=== PATIENT | female | born 1960 | race African-American/Black ===

== ENCOUNTER 2016-09-15 10:28 | Day surgery (SDC) | payer OTHER ==
[2016-09-10 09:52] VITALS: BMI 43.6
[2016-09-15] MEDS ORDERED: PROPOFOL 20 ML ONE ×2 (10:36)
[2016-09-15 11:41] VITALS: PULSE 74
[2016-09-15 12:04] VITALS: BP 118/60; TEMP 50
--- NOTE | 2016-09-20 17:44 | PATH ---
Surgical Pathology Report Patient Name: JUAN CUNHA [facility]. Rec. #: [id number] /Age/Gender: 1960 (Age: 55) / F Account: [id number] Location: [facility] Taken: 09/15/2016 Received: 09/15/2016 Reported: 09/20/2016 Physicians: Radhika Dukes M.D. Specimen(s) Received BX DESCENDING COLON Clinical History History of polyps Final Diagnosis DESCENDING, BIOPSY: HYPERPLASTIC POLYP. Electronically Signed Lorenza Mooney M.D. Gross Description Received in formalin, labeled "descending" are 2 mercado, irregular portions of soft tissue measuring 0.1 and 0.2 cm. in greatest dimension. The specimens are submitted in toto in one cassette. [facility]/09/15/2016 [facility]/09/15/2016
== END 2016-09-15 12:00 | disposition home or self-care (01) ==
LOC: FASU-ENDO 10:28
PROVIDERS: ATTEND Internal Medicine Gastroenterology
PROC: 0DBK8ZX Excision of Ascending Colon, Via Natural or Artificial Opening Endoscopic, Diagnostic (ICD-10-PCS; principal; 2016-09-15 10:59)
DX: Z86.010 Personal history of colon polyps (principal); K64.8 Other hemorrhoids; K57.30 Diverticulosis of large intestine without perforation or abscess without bleeding; K63.5 Polyp of colon
CPT/HCPCS: 88305-TC

== ENCOUNTER 2019-11-30 10:53 | Day surgery (SDC) | payer OTHER ==
[2019-11-27 09:34] VITALS: BMI 41.4
--- OUTSIDE RECORDS SUMMARY | 2019-11-30 10:56 | XMS ---
:1960 [facility] Providers Name Role Phone Joyce, Satyavathi Unavailable Unavailable Joyce, Satyavathi Unavailable Unavailable Joyce, Satyavathi Unavailable Unavailable Joyce, Satyavathi Unavailable Unavailable Joyce, Satyavathi Unavailable Unavailable Joyce, Satyavathi Unavailable Unavailable Joyce, Satyavathi Unavailable Unavailable Joyce, Satyavathi Unavailable Unavailable AYE CORTES Unavailable Unavailable Re-disclosure Warning The records that you are about to access may contain information from federally- assisted alcohol or drug abuse programs. If such information is present, then the following federally mandated warning applies: This information has been disclosed to you from records protected by federal confidentiality rules (42 CFR part 2). The federal rules prohibit you from making any further disclosure of this information unless further disclosure is expressly permitted by the written consent of the person to whom it pertains or as otherwise permitted by 42 CFR part 2. A general authorization for the release of medical or other information is NOT sufficient for this purpose. The Federal rules restrict any use of the information to criminally investigate or prosecute any alcohol or drug abuse patient.The records that you are about to access may contain highly sensitive health information, the redisclosure of which is protected by Article 27-F of the [facility] Public Health law. If you continue you may haveaccess to information: Regarding HIV / AIDS; Provided by facilities licensed or operated by the [facility] Office of Mental Health; or Provided by the [facility] Office for People With Developmental Disabilities. If such information is present, then the following [facility] mandated warning applies: This information has been disclosed to you from confidential records which are protected by state law. State law prohibits you from making any further disclosure of this information without the specific written consent of the person to whom it pertains, or as otherwise permitted by law. Any unauthorized further disclosure in violation of state law may result in a fine or penitentiary sentence or both. A general authorization for the release of medical or other information is NOT sufficient authorization for further disclosure. Encounters Encounter Providers Location Date Indications Data Source(s ) Outpatient Attender: SEBASTIAN, 07/02/2019 [facility] AYE GilAdmitter: 06:00:00 AM [facility] AYE CORTES EDT Corporatio n EFiorellaReferrer: AYE CORTES Z Outpatient Attender: SEBASTIAN 05/29/2019 10:12:00 Z03.818 [facility] AYE GilAdmitter: AM EDT [facility] AYE CORTES Corpora tion Z03.818 Outpatient Attender: Lionel 5T-RAD DEPT 05/04/2019 08:39:00 [facility] - [place]yle Joyce AM EDT - 05/04/2019 Hospi vil[facility] 11:59:00 PM EDT Patient discharged. Insurance Providers Payer Policy type / Policy ID Covered Covered constitution party's Policy Plan name Coverage type constitution party ID relationship to [employer] Information brooks R [id number] R Commercial [id number] [facility] Commercial [id number] Problems, Conditions, and Diagnoses Code Display Name Description Problem Type Effective Data Sour ce(s) Dates Z Encounter for ENCOUNTER FOR Diagnosis 07/02/2019 [facility] antibody response ANTIBODY RESPONSE 06:00:00 AM [facility] Health examination EXAMINATION EDT Care Corpora tion Z03.818 Encounter for ENCNTR FOR OBS Diagnosis 05/29/2019 [facility] observation for FOR SUSP EXPSR TO 10:12:00 AM C ouAlkermes suspected OTH BIOLG AGENTS EDT Care Cor poration exposure to other RULED OUT biological agents ruled out Z12.31 Encounter for Breast cancer Diagnosis 05/04/2019 [facility] - Mo unt screening screening by 08:39:00 AM [facility] mammogram for mammogram EDT malignant neoplasm of breast Surgeries/Procedures Procedure Description Date Indications Data Source(s) MG Mammography 05/04/2019 [facility]- Bilateral MG 08:53:00 AM EDT [facility] Mammography Screening- - 05/04/2019 Bilateral 08:53:00 AM EDT Results ID Date Data Source [id number] 11/26/2019 07:35:00 AM EDT [facility] Name Value Range Interpretation Description Data Sup porting Code Source(s) Document(s ) SARS [facility] coronavirus 2 RNA This lab was ordered by [facility] and reported by [facility]. ID Date Data Source [id number] 10/31/2019 09:21:00 AM EDT [facility] Name Value Range Interpretation Description Data Sup porting Code Source(s) Document(s ) SARS [facility] Coronavirus 2 RNA Presence Respiratory Specimen CHERI Probe Detection This lab was ordered by [place] and rep orted by [facility]. ID Date Data Source [id number] 05/29/2019 12:00:00 AM EDT [facility] Name Value Range Interpretation Code Description Data Yasemin rce(s) Supporting Document(s ) 2019-nCoV [facility] RNA XXX CHERI+probe- Imp This lab was ordered by [facility] and reported by [employer]. ID Date Data Source [id number] 05/04/2019 08:53:00 AM EDT [facility] - [facility] MAMMOGRAPHY - BILATERAL SCREENINGREASON FOR EXAM: Female, 58 years old. Routine annualscreening examination. CBE: Withi n the yearTECHNIQUE: Digital examination. Mediolateral oblique (MLO)andcraniocauda d (CC) views of both breasts were obtained. CAD: CADwas performed on thisstudy.ERIC RISON: 05/02/2018, 04/21/2017, 02/28/2013FINDINGS:Breast Composition: Th ere arescattered areas of fibroglandulardensity.There are no domin ant masses or suspiciouscalcifications.There is no evidence of skin thickening or significantaxillarylymphadenopathy.IMPRE SSION:Stable bilateral screeningmammogram.Recommendation: Bilat eral screening mammography in AprilSSESSMENTCATEGORY:BIRADS Category 1 : Negative. A letter regarding these resultswill be sent to the patient by [facility] within 30 days.FOLLOW UP RECOMMENDATION:Yearly follow up mammogra m recommended.(A)Approximately 10% of breast cancers are not detected bymammography. A normal mammogram should notdelay biopsy of aclinically suspicious abnormality.RS201 5Electronically Signed:Shaun, at 10:20 EDTTel , Service support ,[phone] Name Value Range Interpretation Code Description Data Yasemin rce(s) Supporting Document(s ) Procedure
[2019-11-30 12:29] VITALS: BP 110/71; PULSE 68; TEMP 98
--- NOTE | 2019-12-05 10:57 | PATH ---
Surgical Pathology Report Patient Name: JUAN CUNHA [facility]. Rec. #: [id number] /Age/Gender: 1960 (Age: 59) / F Account: [id number] [facility] Received: 11/30/2019 Reported: 12/05/2019 Physicians: Radhika Dukes M.D. Specimen(s) Received POLYP DESCENDING COLON Clinical History History of polyps Postoperative diagnosis: Colon polyp, diverticulosis, hemorrhoids Final Diagnosis DESCENDING COLON POLYP, POLYPECTOMY: HYPERPLASTIC POLYP. Electronically Signed Neftali Ridley M.D. Gross Description Received in formalin, labeled "biopsy polyp descending colon" is a mercado, irregular portion of soft tissue measuring 0.2 cm. in greatest dimension. The specimen is submitted in toto in one cassette. 12/03/2019 saudi12/03/2019
== END 2019-11-30 12:35 | disposition home or self-care (01) ==
LOC: FASU-ENDO 10:53
PROVIDERS: ATTEND Internal Medicine Gastroenterology
PROC: 0DBM8ZX Excision of Descending Colon, Via Natural or Artificial Opening Endoscopic, Diagnostic (ICD-10-PCS; principal; 2019-11-30 11:40)
DX: Z09 Encounter for follow-up examination after completed treatment for conditions other than malignant neoplasm (principal); Z86.010 Personal history of colon polyps; D12.4 Benign neoplasm of descending colon; K64.2 Third degree hemorrhoids; K57.30 Diverticulosis of large intestine without perforation or abscess without bleeding
CPT/HCPCS: 88305-TC

== ENCOUNTER 2021-07-31 09:19 | Day surgery (SDC) | payer OTHER ==
[2021-07-29 15:20] VITALS: BMI 42.9
[2021-07-31 11:18] VITALS: PULSE 67; TEMP 97.4
[2021-07-31 11:20] VITALS: BP 131/77
== END 2021-07-31 11:20 | disposition home or self-care (01) ==
LOC: FASU-ENDO 09:19
PROVIDERS: ATTEND Internal Medicine Gastroenterology
PROC: 0DB68ZX Excision of Stomach, Via Natural or Artificial Opening Endoscopic, Diagnostic (ICD-10-PCS; 2021-07-31)
PROC: 0DB18ZX Excision of Upper Esophagus, Via Natural or Artificial Opening Endoscopic, Diagnostic (ICD-10-PCS; 2021-07-31)
PROC: 0DB28ZX Excision of Middle Esophagus, Via Natural or Artificial Opening Endoscopic, Diagnostic (ICD-10-PCS; 2021-07-31)
PROC: 0DB38ZX Excision of Lower Esophagus, Via Natural or Artificial Opening Endoscopic, Diagnostic (ICD-10-PCS; 2021-07-31)
PROC: 0DB48ZX Excision of Esophagogastric Junction, Via Natural or Artificial Opening Endoscopic, Diagnostic (ICD-10-PCS; 2021-07-31)
PROC: 0DB98ZX Excision of Duodenum, Via Natural or Artificial Opening Endoscopic, Diagnostic (ICD-10-PCS; principal; 2021-07-31 10:29)
DX: K22.70 Barrett's esophagus without dysplasia (principal); K29.50 Unspecified chronic gastritis without bleeding; K21.00 Gastro-esophageal reflux disease with esophagitis, without bleeding; Z87.19 Personal history of other diseases of the digestive system
CPT/HCPCS: 88305-TC; 88342-TC

== ENCOUNTER 2022-09-17 08:45 | Day surgery (SDC) | payer OTHER ==
[2022-09-16 09:24] VITALS: BMI 40.3
[2022-09-17] MEDS ORDERED: PROPOFOL 60 ML ONE (09:46)
[2022-09-17 10:36] VITALS: PULSE 70; RESP 16; TEMP 96.6
[2022-09-17 10:54] VITALS: BP 125/65
== END 2022-09-17 11:05 | disposition home or self-care (01) ==
LOC: FASU-ENDO 08:45
PROVIDERS: ATTEND Internal Medicine Gastroenterology
PROC: 0DB68ZX Excision of Stomach, Via Natural or Artificial Opening Endoscopic, Diagnostic (ICD-10-PCS; 2022-09-17)
PROC: 0DB48ZX Excision of Esophagogastric Junction, Via Natural or Artificial Opening Endoscopic, Diagnostic (ICD-10-PCS; 2022-09-17)
PROC: 0DB98ZX Excision of Duodenum, Via Natural or Artificial Opening Endoscopic, Diagnostic (ICD-10-PCS; principal; 2022-09-17 10:12)
DX: K21.00 Gastro-esophageal reflux disease with esophagitis, without bleeding (principal); K29.50 Unspecified chronic gastritis without bleeding; K22.89 Other specified disease of esophagus; Z87.19 Personal history of other diseases of the digestive system
CPT/HCPCS: 88305-TC; 88342-TC

== ENCOUNTER 2023-10-04 05:02 | Day surgery (SDC) | payer OTHER ==
[2023-09-29 11:34] VITALS: BMI 39.8
[2023-10-04 11:09] VITALS: PULSE 65; RESP 16; TEMP 98
[2023-10-04 11:25] VITALS: BP 125/47
== END 2023-10-04 12:25 | disposition home or self-care (01) ==
LOC: JASU-ENDO 05:02
PROVIDERS: ATTEND Internal Medicine Gastroenterology
PROC: 0DJD8ZZ Inspection of Lower Intestinal Tract, Via Natural or Artificial Opening Endoscopic (ICD-10-PCS; principal; 2023-10-04 10:47)
DX: Z12.11 Encounter for screening for malignant neoplasm of colon (principal); K64.1 Second degree hemorrhoids; K51.30 Ulcerative (chronic) rectosigmoiditis without complications; Z86.010 Personal history of colon polyps